=== PATIENT | female | born 1980 | race Caucasian/White ===

== ENCOUNTER → 2016-05-04 | Outpatient (CLI) | payer OTHER ==
[2015-07-12 06:37] VITALS: BP 110/75
[~2016-05-04] MED LIST: AMLO1CAP PO; BUPR150T15 PO; BUPR150T8 PO; METH-38 PO; OXYC-323 PO
--- NOTE | 2016-05-04 11:00 | KCIC ---
PROCEDURE Cervical spine, two views. HISTORY Neck pain and right upper extremity radiculopathy. FINDINGS Frontal and lateral views of the cervical spine are obtained. There is instrumented anterior spinal fusion and interbody fusion at C5-C6. There is minimal anterolisthesis at this level, stable in appearance. There is also minimal anterolisthesis of C7 on T1, stable in appearance. The vertebral bodies are normal in height and the non fused disc spaces are preserved. IMPRESSION 1. Instrumented fusion at C5-C6, stable in appearance. 2. Minimal anterolisthesis of C5 on C6 and C7 on T1, stable in appearance. Electronically signed by: Helen Lawton (May 04, 2016 10:59:07)
== END | disposition home or self-care (01) ==
LOC: KCIC 09:54
PROVIDERS: ATTEND Neurological Surgery
DX: M54.2 Cervicalgia (principal); R20.0 Anesthesia of skin
CPT/HCPCS: 72040

== ENCOUNTER → 2016-06-17 | Outpatient (CLI) | payer OTHER ==
[2015-07-12 06:37] VITALS: BP 110/75
--- NOTE | 2016-06-17 11:14 | KCIC ---
PROCEDURE MRI cervical spine without contrast. HISTORY Radiculopathy. Right arm numbness. Symptoms since February. TECHNIQUE Sagittal T1, sagittal T2, sagittal STIR, axial T2, and axial T2 gradient sequences are provided. COMPARISON Radiographs from May 04, 2016. FINDINGS Hardware artifact is noted at C5-C6 from anterior cervical fusion with interbody bone cage. There is no malalignment. There is no marrow edema. There is no worrisome marrow lesion. There is no cord signal abnormality. Cervicomedullary junction is unremarkable. Partially included is a left thyroid nodule measuring 11 millimeters. Degenerative findings by individual level are as follows: C2-C3: There is no canal or foraminal compromise. C3-C4: Mild disc bulge is noted without canal or foraminal compromise. C4-C5: There is no canal or foraminal compromise. C5-C6: There is hardware artifact. There is no canal or foraminal compromise. C6-C7: Diffuse disc bulge is noted, mildly effacing the ventral CSF column. There is no canal or foraminal compromise. C7-T1: There is no canal or foraminal compromise. IMPRESSION - Disc bulges at C3-C4 and C6-C7, no high-grade canal or foraminal compromise at any level. - Anterior cervical fusion of C5 and C6. Electronically signed by: Perez Thomson MD (Jun 17, 2016 11:12:50)
== END | disposition home or self-care (01) ==
LOC: KCIC MRI 09:41
PROVIDERS: ATTEND Neurological Surgery
DX: M54.12 Radiculopathy, cervical region (principal)
CPT/HCPCS: 72141